=== PATIENT | female | born 1975 | race Caucasian/White ===

== ENCOUNTER → 2023-11-17 | Outpatient (CLI) | payer MEDICAID ==
[~2023-11-17] MED LIST: CRUTCHES
== END ==
LOC: RAD 09:18
DX: M25.551 Pain in right hip (principal)

== ENCOUNTER → 2024-02-07 | Day surgery (SDC) | payer MEDICAID ==
[~2024-02-07] MED LIST changes: +Lidocaine PF 2% (20 MG/ML) 2 ML VIAL ONE
== END ==
LOC: MSO 08:06
DX: Z12.11 Encounter for screening for malignant neoplasm of colon (principal); E66.9 Obesity, unspecified
CPT/HCPCS: 00812; J2704; J7120

== ENCOUNTER → 2025-02-13 | Outpatient (CLI) | payer MEDICAID ==
[~2025-02-13] MED LIST changes: +CEPHALEXIN500 M1 PO; +FLOMAX0.4 MG PO; -Lidocaine PF 2% (20 MG/ML) 2 ML VIAL ONE
== END ==
LOC: RAD 07:30
DX: G47.33 Obstructive sleep apnea (adult) (pediatric) (principal); R41.3 Other amnesia; Z92.21 Personal history of antineoplastic chemotherapy